=== PATIENT | female | born 1985 | race Caucasian/White ===

== ENCOUNTER 2016-10-19 13:18 | Emergency (ER) | payer MEDICAID, OTHER ==
[~2016-10-19] VITALS: Ht 157.5 cm; Wt 79.0 kg
[~2016-10-19 13:18] MED LIST: IBUP800T23 PO; LEVO50TA4 PO; UNIS50CA PO
[2016-10-19 13:20] VITALS: BP 158/81; PULSE 132; RESP 15; TEMP 98.1; O2SAT 95
[2016-10-19] MEDS ORDERED: SODIUM CHLOR 0.9% 1000 ML INJ 1,000 ML IV ONE (13:35)
[2016-10-19 13:47] VITALS: RESP 16; O2SAT 95
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
[2016-10-19 14:12] LABS: AUTOMATED NEUTROPHIL # 7.7 TH/MM3 (1.8-7.7); BASOPHIL # 0.1 TH/MM3 (0-0.2); BASOPHIL % 1.2 % (0.0-2.0); EOSINOPHIL # 0.1 TH/MM3 (0-0.4); EOSINOPHIL % 0.8 % (0.0-4.0); HEMATOCRIT 37.1 % (35.0-46.0); HEMO FLAGS DIFF FINAL; LYMPH % 16.8 % (9.0-44.0); LYMPHOCYTE # 1.7 TH/MM3 (1.0-4.8); MEAN CELL VOLUME 85.9 FL (80.0-100.0); MEAN CORPUSCULAR HEMOGLOBIN 28.9 PG (27.0-34.0); MEAN CORPUSCULAR HGB CONC 33.6 % (32.0-36.0); MONO % 5.2 % (0.0-8.0); PLATELET COUNT 396 TH/MM3 (150-450); RED BLOOD COUNT 4.32 MIL/MM3 (4.00-5.30); RED CELL DISTRIBUTION WIDTH 13.9 % (11.6-17.2); WHITE BLOOD COUNT 10.1 TH/MM3 (4.0-11.0)
[2016-10-19 14:21] LABS: APTT (PATIENT) 24.3 SEC (24.3-30.1)
[2016-10-19 14:32] LABS: ANION GAP 10 MEQ/L (5-15)
[2016-10-19 14:35] LABS: ALKALINE PHOSPHATASE 77 U/L (45-117); ALT (GPT) 30 U/L (10-53); AST (GOT) 17 U/L (15-37); BICARBONATE 27.1 MEQ/L (21.0-32.0); BLOOD UREA NITROGEN 11 MG/DL (7-18); CHLORIDE 99 MEQ/L (98-107); GLOMERULAR FILTRATION RATE 64 ML/MIN (>89); POTASSIUM 3.4 MEQ/L (3.5-5.1); SODIUM (NA) 136 MEQ/L (136-145); TOTAL BILIRUBIN ADULT 0.3 MG/DL (0.2-1.0)
[2016-10-19 14:42] LABS: ACETAMINOPHEN LESS THAN 2.0 MCG/ML (10.0-30.0)
[2016-10-19 16:37] LABS: BACTERIA, URINE RARE /hpf; BLOOD, URINE NEG (NEG); COMMENT (UR) CULT NOT INDICATED; CULTURE IF INDICATED CULT NOT INDICATED; GLUCOSE,URINE NEG (NEG); KETONE, URINE 40 mg/dL (NEG); NITRITE,URINE NEG (NEG); SQUAMOUS EPITHELIAL CELL URINE 6 /hpf (0-5); TRANSITIONAL EPI CELLS, URINE <1 /hpf; URINE COLOR LIGHT-YELLOW (YELLW/STRAW)
[2016-10-19 16:43] LABS: AMPHETAMINE, URINE NEG (NEG); BARBITURATES, URINE NEG (NEG); COCAINE, URINE NEG (NEG)
[2016-10-19 18:52] VITALS: BP 128/80; PULSE 103; RESP 22; TEMP 98.7; O2SAT 99
[2016-10-19 22:14] VITALS: BP 148/82; PULSE 75; RESP 18; O2SAT 97
[2016-10-20 02:00] VITALS: BP 116/62; PULSE 88; RESP 17; O2SAT 99
[2016-10-20 06:35] VITALS: BP 123/56; PULSE 85; RESP 16; O2SAT 98
--- NOTE | 2016-10-20 10:26 | PD ---
History of Present Illness Chief Complaint: OD/ Ingestion Time Seen by Provider: 09:50 Travel History International Travel<30 Days: No Contact w/Intl Traveler<30days: No Known affected area: No Legal Status Legal Status: Voluntary History of Present Illness: History of Present Illness The patient is a 31-year-old female with history of anxiety and depression who presents to the emergency department voluntarily after an intentional overdose. The patient states she took 17 [id number] sleeping pills last night in an effort to " go to sleep". She states that immediately after she took the pills she made herself vomit and she regretted taking the pills. " It was a moment of weakness". The incident happened in context of an argument she was having with her boyfriend as well as over sadness over the of her 3 years ago and some pictures of him that she was looking at. She also reports that she had 2 alcoholic drinks at the time. EMR review shows no previous contact with [facility] [place]. Current toxicology is negative including no ETOH. Patient was monitored overnight in [place] [facility]. She presented no behavioral concerns and no suicidality. She is alert and oriented female who appears stated age. She is calm, engaging and cooperative. speech is clear, logical and goal directed. Denies any hallucinations, delusions or paranoia. No karen. She denies current suicidal ideation, intent or plan. She reports that she was not suicidal but that taking the pills was an impulsive reaction at the time. Mood is depressed. reports fair sleep with recent nocmares, fair appetite and good level of energy. She is future oriented and is interesting i resuming psychiatric care as well as counseling services to increase her coping. PFSH Past Medical History Anxiety: Yes Depression: Yes Cardiovascular Problems: Yes (HEART MURMUR) Chemotherapy: Yes Fibromyalgia: Yes Immune Disorder: Yes (LUPUS) Musculoskeletal: Yes (fibromylgia) Reproductive: Yes (PCOS) Thyroid Disease: Yes (HYPOTHYROID) ?: Not LMP: 10/05/16 Ovarian Cysts: Yes Past Surgical History Other Surgery: Yes (HERNIA REPAIR) Psychiatric History Psychiatric History Hx Psychiatric Treatment: HX: DEPRESSION, ANXIETY. History of Inpatient Treatment: No Guns or firearms in home: No Social History female. at age 18 years. She is currently living with her boyfriend. No children. She is on social security disability. Hx Alcohol Use: Yes ( drinks 1 -2 glassess of wine.) Hx Tobacco Use: No Hx Substance Use: No Hx of Substance Use Treatment: No Family Psychiatric History None reported Allergies-Medications (Allergen,Severity, Reaction): Coded Allergies: No Known Allergies (Unverified , 09/18/16) Reported Meds & Prescriptions Reported Meds & Active Scripts Active Levothyroxine (Levothyroxine Sodium) 50 Mcg Tab 50 Mcg PO DAILY Reported Unisom Sleepgels (Diphenhydramine (Sleep)) 50 Mg Cap 50 Mg PO HS PRN Ibuprofen 800 Mg Tab 800 Mg PO TID PRN Review of Systems Constitutional: DENIES: Diaphoretic episodes, Fatigue, Fever, Weight gain, Weight loss, Chills, Dizziness, Change in appetite, Night Sweats Endocrine: DENIES: Abnorml menstrual pattern, Heat/cold intolerance, Polydipsia , Polyuria, Polyphagia Ears, nose, mouth, throat: DENIES: Tinnitus, Hearing loss, Vertigo, Nasal discharge, Oral lesions, Throat pain, Hoarseness, Ear Pain, Running Nose, Epistaxis, Sinus Pain, Toothache, Odynophagia Respiratory: DENIES: Apneas, Cough, Snoring, Wheezing, Hemoptysis, Sputum production, Shortness of breath Cardiovascular: DENIES: Chest pain, Palpitations, Syncope, Dyspnea on Exertion , PND, Lower Extremity Edema, Orthopnea, Claudication Gastrointestinal: DENIES: Abdominal pain, Black stools, Bloody stools, Constipation, Diarrhea, Nausea, Vomiting, Difficulty Swallowing, Anorexia Genitourinary: DENIES: Abnormal vaginal bleeding, Dysmenorrhea, Dyspareunia, Sexual dysfunction, Urinary frequency, Urinary incontinence, Urgency, Hematuria , Dysuria, Nocturia, Vaginal discharge Musculoskeletal: COMPLAINS OF: Muscle aches Integumentary: DENIES: Abnormal pigmentation, Pruritus, Rash, Nail changes, Breast masses, Breast skin changes, Nipple discharge Hematologic/lymphatic: DENIES: Bruising, Lymphadenopathy Immunologic/allergic: DENIES: Eczema, Urticaria Neurologic: DENIES: Abnormal gait, Headache, Localized weakness, Paresthesias, Seizures, Speech Problems, Tremor, Poor Balance Psychiatric: COMPLAINS OF: Anxiety, Depression Exam Alert: Yes Fertile: Person (ox4) Mood: Anxious, Depressed Affect: Other (congruent) Speech: Clear, Logical Eye Contact: Normal Memory Intact: Comment (no impairment) Hallucinations: Other (Negative) Delusions: No Suicidal: Ideation (deneis any) Homicidal: Ideation (denies any) Insight/Judgement Fair. Not impaired. MDM Medical Decision Making Medical Record Reviewed: Yes Assessment/Plan 31 year old female under a voluntary who impulsively took a handful of sleeping pills. This in context of seeing some pictures of her who 3 years ago as well as having an argument with her current boyfriend. She immediately vomited the pills and came to the hospital for help. Psychoeducation and support is provided. At this time she does not meet criteria for inpatient psychiatric care or for BA. She may benefit from initiating psychiatric care as well as counseling services on an outpatient basis. She is also provided information re grief share. Discharge to home. Orders Complete Blood Count With Diff (10/19/16 13:35) Comprehensive Metabolic Panel (10/19/16 13:35) Prothrombin Time / Inr (Pt) (10/19/16 13:35) Act Partial Throm Time (Ptt) (10/19/16 13:35) Urinalysis - C+S If Indicated (10/19/16 13:35) Iv Access Insert/Monitor (10/19/16 13:35) Ecg Monitoring (10/19/16 13:35) Oximetry (10/19/16 13:35) Sodium Chlor 0.9% 1000 Ml Inj (Ns 1000 M (10/19/16 13:35) Call Poison Control (10/19/16 13:35) Drug Screen, Random Urine (10/19/16 13:35) Alcohol (Ethanol) (10/19/16 13:35) Salicylates (Aspirin) (10/19/16 13:35) Tylenol (Acetaminophen) (10/19/16 13:35) Psych Screen (10/19/16 13:36) Electrocardiogram (10/19/16 ) Diet Regular Basic (10/19/16 Dinner) Diet Regular Basic (10/20/16 Breakfast) Results Vital Signs Date Time Temp Pulse Resp B/P Pulse Ox O2 Delivery O2 Flow Rate FiO2 10/20/16 06:35 85 16 123/56 98 Room Air 10/20/16 02:00 88 17 116/62 99 Room Air 10/19/16 22:14 75 18 148/82 97 Room Air 10/19/16 18:52 98.7 103 22 128/80 99 Room Air 10/19/16 13:47 16 95 Room Air 10/19/16 13:38 130 16 97 10/19/16 13:20 98.1 132 15 158/81 95 Laboratory Tests Test 10/19/16 10/19/16 14:00 16:20 White Blood Count 10.1 Red Blood Count 4.32 Hemoglobin 12.5 Hematocrit 37.1 Mean Corpuscular Volume 85.9 Mean Corpuscular Hemoglobin 28.9 Mean Corpuscular Hemoglobin 33.6 Concent Red Cell Distribution Width 13.9 Platelet Count 396 Mean Platelet Volume 7.8 Neutrophils (%) (Auto) 76.0 Lymphocytes (%) (Auto) 16.8 Monocytes (%) (Auto) 5.2 Eosinophils (%) (Auto) 0.8 Basophils (%) (Auto) 1.2 Neutrophils # (Auto) 7.7 Lymphocytes # (Auto) 1.7 Monocytes # (Auto) 0.5 Eosinophils # (Auto) 0.1 Basophils # (Auto) 0.1 CBC Comment DIFF FINAL Differential Comment Prothrombin Time 11.0 Prothromb Time International 1.0 Ratio Activated Partial 24.3 Thromboplast Time Sodium Level 136 Potassium Level 3.4 Chloride Level 99 Carbon Dioxide Level 27.1 Anion Gap 10 Blood Urea Nitrogen 11 Creatinine 1.01 Estimat Glomerular Filtration 64 Rate Random Glucose 100 Calcium Level 9.1 Total Bilirubin 0.3 Aspartate Amino Transf 17 (AST/SGOT) Alanine Aminotransferase 30 (ALT/SGPT) Alkaline Phosphatase 77 Total Protein 8.1 Albumin 4.4 Salicylates Level LESS THAN 1.7 Acetaminophen Level LESS THAN 2.0 Ethyl Alcohol Level LESS THAN 3 Urine Color LIGHT-YELLOW Urine Turbidity HAZY Urine pH 6.0 Urine Specific [place] 1.009 Urine Protein NEG Urine Glucose (UA) NEG Urine Ketones 40 Urine Occult Blood NEG Urine Nitrite NEG Urine Bilirubin NEG Urine Urobilinogen LESS THAN 2.0 Urine Leukocyte Esterase NEG Urine RBC LESS THAN 1 Urine WBC 4 Urine Squamous Epithelial 6 Cells Urine Transitional Epithelial <1 Cells Urine Bacteria RARE Microscopic Urinalysis Comment CULT NOT INDICATED Urine Opiates Screen NEG Urine Barbiturates Screen NEG Urine Amphetamines Screen NEG Urine Benzodiazepines Screen NEG Urine Cocaine Screen NEG Urine Cannabinoids Screen NEG Diagnosis Primary Impression: Intentional drug overdose Additional Impression: Adjustment disorder Psychiatrically Cleared: Yes Med/ Other Pt Specific Info: No Meds Exist/No RX given Disposition: 01 DISCHARGE HOME Condition: Stable Problem Qualifiers Primary Impression: Intentional drug overdose Qualified Code: T50.902A - Intentional drug overdose, initial encounter Additional Impression: Adjustment disorder Qualified Code: F43.23 - Adjustment disorder with mixed anxiety and depressed mood Ara Johnson Oct 20, 2016 10:26
--- NOTE | 2016-10-26 12:58 | EKG ---
Date Performed: 10/19/2016 Time Performed: 14:35:05 PTAGE: 31 years EKG: SINUS TACHYCARDIA INCOMPLETE RIGHT BUNDLE BRANCH BLOCK NONSPECIFIC T-WAVE ABNORMALITY ABNOR MAL RHYTHM ECG NO PREVIOUS TRACING DOCTOR: Joey Kc Interpretating Date/Time 10/26/2016 12:57:40
[2016-11-03] MEDS ORDERED: EXTR500C PO (11:12)
[2016-11-04] MEDS ORDERED: LEVO50TA4 PO (09:24)
[2016-11-12] MEDS ORDERED: LAMO25TA PO (15:19)
[2016-11-12] MEDS ORDERED: PRAZ1CAP PO (15:19)
[2016-12-02] MEDS ORDERED: LEVO50TA4 PO (13:46)
[2016-12-18] MEDS ORDERED: PRAZ1CAP PO (14:19)
[2016-12-18] MEDS ORDERED: LAMO25TA PO (14:19)
[2016-12-18] MEDS ORDERED: FLUO0.05 TOPICAL (14:30)
[2016-12-18] MEDS ORDERED: HYDR1CRE TOPICAL (14:30)
[2016-12-18] MEDS ORDERED: PRED20 PO (14:31)
[2016-12-18] MEDS ORDERED: LIDO1PAD52 TOPICAL (14:35)
[2016-12-18] MEDS ORDERED: ZOFR8TAB PO (14:36)
[2016-12-31] MEDS ORDERED: LEVO50TA4 PO (16:41)
[2017-01-27] MEDS ORDERED: LEVO50TA4 PO (07:44)
[2017-02-19] MEDS ORDERED: LEVO50TA4 PO (12:29)
== END 2016-10-20 10:55 | disposition home or self-care (01) ==
LOC: NEPE 13:18 → NEPJ 10-20 10:55
DX: F41.9 Anxiety disorder, unspecified (principal); T50.902A Poisoning by unspecified drugs, medicaments and biological substances, intentional self-harm, initial encounter; M32.9 Systemic lupus erythematosus, unspecified; E03.9 Hypothyroidism, unspecified; R00.0 Tachycardia, unspecified; I45.10 Unspecified right bundle-branch block
CPT/HCPCS: 80053; 80307; 80320; 81001; 85025; 85610; 85730; 93005; 99284; J7030; 80329; G0480

== ENCOUNTER 2016-12-06 13:16 | Emergency (ER) | payer MEDICAID ==
[~2016-12-06] VITALS: Ht 157.5 cm; Wt 68.0 kg
[~2016-12-06 13:16] MED LIST changes: +EXTR500C PO; +LAMO25TA PO; +PRAZ1CAP PO
[2016-12-06 13:18] VITALS: BP 154/105; PULSE 112; RESP 17; TEMP 98.3; O2SAT 99
[2016-12-06 13:39] VITALS: BP 140/87; PULSE 119; RESP 16; O2SAT 97
[2016-12-06 14:18] LABS: AUTOMATED NEUTROPHIL # 4.8 TH/MM3 (1.8-7.7); BASOPHIL # 0.1 TH/MM3 (0-0.2); BASOPHIL % 1.2 % (0.0-2.0); EOSINOPHIL # 0.4 TH/MM3 (0-0.4); EOSINOPHIL % 4.6 % (0.0-4.0); HEMATOCRIT 37.2 % (35.0-46.0); HEMO FLAGS DIFF FINAL; MEAN CELL VOLUME 86.5 FL (80.0-100.0); MEAN CORPUSCULAR HEMOGLOBIN 29.3 PG (27.0-34.0); MEAN CORPUSCULAR HGB CONC 33.8 % (32.0-36.0); MONO % 6.8 % (0.0-8.0); NEUT % 61.4 % (16.0-70.0); PLATELET COUNT 323 TH/MM3 (150-450); RED CELL DISTRIBUTION WIDTH 13.4 % (11.6-17.2); WHITE BLOOD COUNT 7.7 TH/MM3 (4.0-11.0)
[2016-12-06 14:22] LABS: BACTERIA, URINE RARE /hpf; BLOOD, URINE NEG (NEG); GLUCOSE,URINE NEG (NEG); KETONE, URINE NEG (NEG); NITRITE,URINE NEG (NEG); SQUAMOUS EPITHELIAL CELL URINE 6 /hpf (0-5)
[2016-12-06 14:23] LABS: COMMENT (UR) CULT NOT INDICATED; CULTURE IF INDICATED CULT NOT INDICATED; URINE COLOR STRAW (YELLW/STRAW)
[2016-12-06 14:33] LABS: ANION GAP 6 MEQ/L (5-15); BICARBONATE 29.3 MEQ/L (21.0-32.0); BLOOD UREA NITROGEN 11 MG/DL (7-18); CHLORIDE 104 MEQ/L (98-107); GLOMERULAR FILTRATION RATE 70 ML/MIN (>89); POTASSIUM 3.7 MEQ/L (3.5-5.1); SODIUM (NA) 139 MEQ/L (136-145)
[2016-12-06 14:38] LABS: BETA HCG QUANT LESS THAN 1 MIU/ML (0-5)
--- NOTE | 2016-12-06 15:00 | PD ---
HPI Chief Complaint: Related Problem Time Seen by Provider: 13:35 Travel History International Travel<30 days: No Contact w/Intl Traveler<30days: No Traveled to known affect area: No History of Present Illness HPI The patient is a 31-year-old female 0 last menstruation 7 weeks prior with 2 positive home test arrives complaining of 2 days of vaginal bleeding with clots. Severity has gradually decreased with only minimal bleeding today. She reports no ultrasound has been performed. She has had no algorithm developer appointment as of yet. She reports nausea however denies vomiting and fever. PFSH Past Medical History Anxiety: Yes Depression: Yes Cardiovascular Problems: Yes (HEART MURMUR) Chemotherapy: Yes (FOR LUPUS (METHOTREXATE)) Fibromyalgia: Yes Immune Disorder: Yes (LUPUS) Musculoskeletal: Yes (fibromylgia) Reproductive: Yes (PCOS) Thyroid Disease: Yes (HYPOTHYROID) Influenza Vaccination: No ?: LMP: 10/05/16 : 1 Ovarian Cysts: Yes Past Surgical History Other Surgery: Yes (HERNIA REPAIR) Social History Alcohol Use: Yes ( drinks 1 -2 glassess of wine.) Tobacco Use: No Substance Use: No Allergies-Medications (Allergen,Severity, Reaction): Coded Allergies: No Known Allergies (Unverified , 11/12/16) Reported Meds & Prescriptions Reported Meds & Active Scripts Active Levothyroxine (Levothyroxine Sodium) 50 Mcg Tab 50 Mcg PO DAILY Reported Acetaminophen Extra Strength (Acetaminophen) 500 Mg Cap 1,000 Mg PO Q6H PRN Unisom Sleepgels (Diphenhydramine (Sleep)) 50 Mg Cap 50 Mg PO HS PRN Ibuprofen 800 Mg Tab 800 Mg PO TID PRN Review of Systems Except as stated in HPI: all other systems reviewed are Neg General / Constitutional: No: Fever Physical Exam Narrative GENERAL: 31-year-old female pleasant well-nourished well-developed SKIN: Focused skin assessment warm/dry. HEAD: Atraumatic. Normocephalic. EYES: Pupils equal and round. No scleral icterus. No injection or drainage. ENT: No nasal bleeding or discharge. Mucous membranes pink and moist. NECK: Trachea midline. No JVD. CARDIOVASCULAR: Regular rate and rhythm. No murmur appreciated. RESPIRATORY: No accessory muscle use. Clear to auscultation. Breath sounds equal bilaterally. GASTROINTESTINAL: Soft. Minimal suprapubic tenderness. No flank tenderness. GENITOURINARY: Deferred per discretion of provider MUSCULOSKELETAL: No obvious deformities. No clubbing. No cyanosis. No edema. NEUROLOGICAL: Awake and alert. No obvious cranial nerve deficits. Motor grossly within normal limits. Normal speech. PSYCHIATRIC: Appropriate mood and affect; insight and judgment normal. Data Data Last Documented VS Vital Signs Date Time Temp Pulse Resp B/P Pulse Ox O2 Delivery O2 Flow Rate FiO2 12/06/16 13:39 119 16 140/87 97 Room Air 12/06/16 13:18 98.3 Vital signs reviewed Orders Beta Hcg (Quant/Titer) (12/06/16 13:53) Complete Blood Count With Diff (12/06/16 13:53) Basic Metabolic Panel (Bmp) (12/06/16 13:53) Type And Screen (12/06/16 13:53) Urinalysis - C+S If Indicated (12/06/16 13:53) Ed Urine Pregnancytest Poc (12/06/16 13:53) Labs Laboratory Tests Test 12/06/16 14:10 White Blood Count 7.7 TH/MM3 Red Blood Count 4.30 MIL/MM3 Hemoglobin 12.6 GM/DL Hematocrit 37.2 % Mean Corpuscular Volume 86.5 FL Mean Corpuscular Hemoglobin 29.3 PG Mean Corpuscular Hemoglobin 33.8 % Concent Red Cell Distribution Width 13.4 % Platelet Count 323 TH/MM3 Mean Platelet Volume 8.0 FL Neutrophils (%) (Auto) 61.4 % Lymphocytes (%) (Auto) 26.0 % Monocytes (%) (Auto) 6.8 % Eosinophils (%) (Auto) 4.6 % Basophils (%) (Auto) 1.2 % Neutrophils # (Auto) 4.8 TH/MM3 Lymphocytes # (Auto) 2.0 TH/MM3 Monocytes # (Auto) 0.5 TH/MM3 Eosinophils # (Auto) 0.4 TH/MM3 Basophils # (Auto) 0.1 TH/MM3 CBC Comment DIFF FINAL Differential Comment Urine Color STRAW Urine Turbidity HAZY Urine pH 7.0 Urine Specific [place] 1.003 Urine Protein NEG mg/dL Urine Glucose (UA) NEG mg/dL Urine Ketones NEG mg/dL Urine Occult Blood NEG Urine Nitrite NEG Urine Bilirubin NEG Urine Urobilinogen LESS THAN 2.0 MG/DL Urine Leukocyte Esterase SMALL Urine RBC LESS THAN 1 /hpf Urine WBC 3 /hpf Urine Squamous Epithelial 6 /hpf Cells Urine Bacteria RARE /hpf Microscopic Urinalysis Comment CULT NOT INDICATED Sodium Level 139 MEQ/L Potassium Level 3.7 MEQ/L Chloride Level 104 MEQ/L Carbon Dioxide Level 29.3 MEQ/L Anion Gap 6 MEQ/L Blood Urea Nitrogen 11 MG/DL Creatinine 0.93 MG/DL Estimat Glomerular Filtration 70 ML/MIN Rate Random Glucose 110 MG/DL Calcium Level 9.8 MG/DL Human Chorionic Gonadotropin, LESS THAN 1 Quant MIU/ML Blood Type B POSITIVE [facility] Medical Decision Making Medical Screen Exam Complete: Yes Emergency Medical Condition: Yes Medical Record Reviewed: Yes Differential Diagnosis IUP, UTI, ectopic , ov torsion, appendicitis, TOA, cervicitis, BV, Trichomoniasis, ov cyst, hernia, mittelschmerz, pain from menstruation Narrative Course The patient has a negative urine test and a beta hCG of less than 1. She is therefore not . Ultrasound canceled. CBC & BMP Diagram 12/06/16 14:10 Pt reassured. Follow up with Filter [facility]er referral. Diagnosis Primary Impression: Vaginal bleeding Referrals: Pop Mccallum MD 2 days Additional Instructions: You have a choice when it comes to health care, and we are glad that you chose [facility]. Hopefully, we have met your expectations on today's visit. You are welcome to return to [facility] at any time, as we are committed to meeting the health care needs of our community. Med/Other Pt SpecificInfo: No Change to Meds Disposition: 01 DISCHARGE HOME Condition: Stable Nico Boudreaux MD Dec 06, 2016 14:59
[2016-12-18] MEDS ORDERED: PRAZ1CAP PO (14:19)
[2016-12-18] MEDS ORDERED: LAMO25TA PO (14:19)
[2016-12-18] MEDS ORDERED: FLUO0.05 TOPICAL (14:30)
[2016-12-18] MEDS ORDERED: HYDR1CRE TOPICAL (14:30)
[2016-12-18] MEDS ORDERED: PRED20 PO (14:31)
[2016-12-18] MEDS ORDERED: LIDO1PAD52 TOPICAL (14:35)
[2016-12-18] MEDS ORDERED: ZOFR8TAB PO (14:36)
[2016-12-31] MEDS ORDERED: LEVO50TA4 PO (16:41)
[2017-01-27] MEDS ORDERED: LEVO50TA4 PO (07:44)
[2017-02-19] MEDS ORDERED: LEVO50TA4 PO (12:29)
== END 2016-12-06 15:14 | disposition home or self-care (01) ==
LOC: NEPC 13:16
DX: N93.9 Abnormal uterine and vaginal bleeding, unspecified (principal); R11.0 Nausea; M79.7 Fibromyalgia; E28.2 Polycystic ovarian syndrome; E03.9 Hypothyroidism, unspecified
CPT/HCPCS: 80048; 81001; 84702; 84703; 85025; 86850; 86900; 86901; 99284

== ENCOUNTER 2016-12-22 01:18 | Emergency (ER) | payer MEDICAID ==
[~2016-12-22] VITALS: Ht 157.5 cm; Wt 75.0 kg
[~2016-12-22 01:18] MED LIST changes: +FLUO0.05 TOPICAL; +HYDR1CRE TOPICAL; +LIDO1PAD52 TOPICAL; +PRED20 PO; +ZOFR8TAB PO
[2016-12-22 01:32] VITALS: BP 144/84; PULSE 119; RESP 18; TEMP 98.5; O2SAT 99
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
[2016-12-23] MEDS ORDERED: LAMO25CH CHEW (15:46)
[2016-12-31] MEDS ORDERED: LEVO50TA4 PO (16:41)
[2017-01-27] MEDS ORDERED: LEVO50TA4 PO (07:44)
[2017-02-19] MEDS ORDERED: LEVO50TA4 PO (12:29)
== END 2016-12-22 03:02 | disposition left against medical advice (07) ==
LOC: NEPC 01:18
DX: T76.21XA Adult sexual abuse, suspected, initial encounter (principal)
CPT/HCPCS: 99281

== ENCOUNTER 2016-12-23 14:05 | Emergency (ER) | payer MEDICAID ==
[~2016-12-23] VITALS: Ht 157.5 cm; Wt 70.0 kg
[2016-12-23 14:06] VITALS: BP 168/101; PULSE 118; RESP 20; TEMP 98.4; O2SAT 99
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
[2016-12-23] MEDS ORDERED: LAMO25CH CHEW (15:46)
[2016-12-23 15:55] LABS: AUTOMATED NEUTROPHIL # 5.4 TH/MM3 (1.8-7.7); BASOPHIL # 0.1 TH/MM3 (0-0.2); BASOPHIL % 0.9 % (0.0-2.0); EOSINOPHIL # 0.3 TH/MM3 (0-0.4); EOSINOPHIL % 3.2 % (0.0-4.0); HEMATOCRIT 38.9 % (35.0-46.0); HEMO FLAGS DIFF FINAL; LYMPH % 27.5 % (9.0-44.0); LYMPHOCYTE # 2.4 TH/MM3 (1.0-4.8); MEAN CELL VOLUME 85.1 FL (80.0-100.0); MEAN CORPUSCULAR HEMOGLOBIN 28.9 PG (27.0-34.0); MONO % 5.7 % (0.0-8.0); NEUT % 62.7 % (16.0-70.0); PLATELET COUNT 398 TH/MM3 (150-450); RED BLOOD COUNT 4.57 MIL/MM3 (4.00-5.30); RED CELL DISTRIBUTION WIDTH 13.3 % (11.6-17.2); WHITE BLOOD COUNT 8.6 TH/MM3 (4.0-11.0)
[2016-12-23 16:24] LABS: ALT (GPT) 38 U/L (10-53); ANION GAP 9 MEQ/L (5-15); AST (GOT) 17 U/L (15-37); BICARBONATE 25.4 MEQ/L (21.0-32.0); CHLORIDE 104 MEQ/L (98-107); GLOMERULAR FILTRATION RATE 66 ML/MIN (>89); POTASSIUM 3.7 MEQ/L (3.5-5.1); SODIUM (NA) 138 MEQ/L (136-145)
[2016-12-23 16:33] LABS: ALKALINE PHOSPHATASE 75 U/L (45-117); BLOOD UREA NITROGEN 10 MG/DL (7-18); TOTAL BILIRUBIN ADULT 0.4 MG/DL (0.2-1.0)
[2016-12-23 18:42] VITALS: BP 122/80; PULSE 100; RESP 18; O2SAT 98
[2016-12-23 19:17] LABS: AMPHETAMINE, URINE NEG (NEG); BARBITURATES, URINE NEG (NEG); COCAINE, URINE NEG (NEG)
[2016-12-23] MEDS ORDERED: diphenhydrAMINE HCL 50 MG CAP PO ONE (21:45)
[2016-12-23 22:00] VITALS: BP 140/90; PULSE 94; RESP 16; O2SAT 99
[2016-12-24] MEDS ORDERED: LORazepam 2 MG TAB PO ONE (01:15)
[2016-12-24 02:03] VITALS: BP 129/88; PULSE 106; RESP 18; O2SAT 98
[2016-12-24 06:00] VITALS: BP 124/67; PULSE 83; RESP 17; O2SAT 97
[2016-12-24 07:37] VITALS: BP 124/67; PULSE 83; RESP 18; TEMP 98.1; O2SAT 98
[2016-12-24 07:38] VITALS: BP 124/67; TEMP 98.1
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
[2016-12-31] MEDS ORDERED: LEVO50TA4 PO (16:41)
[2017-01-27] MEDS ORDERED: LEVO50TA4 PO (07:44)
[2017-02-19] MEDS ORDERED: LEVO50TA4 PO (12:29)
== END 2016-12-24 08:27 | disposition home or self-care (01) ==
LOC: NEPJ 14:05
DX: F43.21 Adjustment disorder with depressed mood (principal); T74.21XS Adult sexual abuse, confirmed, sequela; Z79.899 Other long term (current) drug therapy
CPT/HCPCS: 80053; 80307; 85025; 99284; Q0163

== ENCOUNTER 2017-05-14 14:05 | Observation (INO) | payer MEDICAID ==
[~2017-05-14] VITALS: Ht 157.5 cm; Wt 70.0 kg
[2017-05-14] VITALS (7 sets, daily range): BP systolic 131–167; BP diastolic 87–103; PULSE 92–120; RESP 18–20; TEMP 98.1–99.4; O2SAT 95–98
[~2017-05-14 14:05] MED LIST changes: +AMIT100T2 PO; +BACL10TA PO; +BUSP30TA PO; -EXTR500C PO; -FLUO0.05 TOPICAL; -HYDR1CRE TOPICAL; -IBUP800T23 PO; -LAMO25TA PO; +MAPA500T13 PO; +ONDA1TAB16 PO; -PRAZ1CAP PO; -PRED20 PO; +QUET1TAB8 PO; +SERT-129 PO; -UNIS50CA PO; -ZOFR8TAB PO
--- NOTE | 2017-05-14 14:12 | PD ---
Physical Exam Time Seen by Provider: 14:10 Narrative 32-year-old female sent by Khalida Wilkins, primary care provider, for chest pain for the last couple days that has been constant. Chest pain on and off for a couple months. Reports shortness of breath. Reports heart palpitations. Patient seen in triage. VS reviewed. Awaiting bed placement. Data Data Last Documented VS Vital Signs Date Time Temp Pulse Resp B/P (MAP) Pulse Ox O2 Delivery O2 Flow Rate FiO2 05/14/17 14:08 99.4 120 19 167/103 (124) 98 Room Air MDM Supervised Visit with HAI: Josephine Crowder May 14, 2017 14:12
[2017-05-14] MEDS ORDERED: SODIUM CHLORIDE 0.9% FLUSH 10 ML FLUSH IVF PRN (14:15)
[2017-05-14 15:07] LABS: AUTOMATED NEUTROPHIL # 4.5 TH/MM3 (1.8-7.7); BASOPHIL # 0.1 TH/MM3 (0-0.2); BASOPHIL % 1.1 % (0.0-2.0); EOSINOPHIL # 0.2 TH/MM3 (0-0.4); EOSINOPHIL % 2.7 % (0.0-4.0); HEMO FLAGS DIFF FINAL; LYMPH % 21.9 % (9.0-44.0); LYMPHOCYTE # 1.4 TH/MM3 (1.0-4.8); MEAN CELL VOLUME 88.2 FL (80.0-100.0); MEAN CORPUSCULAR HGB CONC 32.9 % (32.0-36.0); MONO % 6.6 % (0.0-8.0); NEUT % 67.7 % (16.0-70.0); PLATELET COUNT 406 TH/MM3 (150-450); RED BLOOD COUNT 4.65 MIL/MM3 (4.00-5.30); RED CELL DISTRIBUTION WIDTH 14.2 % (11.6-17.2); WHITE BLOOD COUNT 6.6 TH/MM3 (4.0-11.0)
[2017-05-14 15:14] LABS: APTT (PATIENT) 26.5 SEC (24.3-30.1); INTERNATIONAL NORMALIZED RATIO 1.1 RATIO
[2017-05-14 15:22] LABS: ANION GAP 8 MEQ/L (5-15); BICARBONATE 26.4 MEQ/L (21.0-32.0); BLOOD UREA NITROGEN 9 MG/DL (7-18); CHLORIDE 103 MEQ/L (98-107); GLOMERULAR FILTRATION RATE 58 ML/MIN (>89); MAGNESIUM 2.2 MG/DL (1.5-2.5); SODIUM (NA) 137 MEQ/L (136-145)
[2017-05-14 15:36] LABS: CREATINE KINASE 64 U/L (26-192)
--- NOTE | 2017-05-14 15:40 | RADRPT ---
EXAM DATE/TIME: 05/14/2017 15:19 [facility] COMPARISON: No previous studies available for comparison. INDICATIONS : Chest pain x 3 days. MEDICAL HISTORY : Lupus. SURGICAL HISTORY : None. ENCOUNTER: Initial ACUITY: 1 day PAIN SCORE: 6/10 LOCATION: Bilateral chest FINDINGS: A single view of the chest demonstrates the lungs to be symmetrically aerated without evidence of mas s, infiltrate or effusion. The cardiomediastinal contours are unremarkable. Osseous structures are intact. CONCLUSION: 1. No acute cardiopulmonary findings. Nico Strange MD on May 14, 2017 at 15:38 Board Certified Radiologist. This report was verified electronically.
--- NOTE | 2017-05-14 16:05 | PD ---
HPI Chief Complaint: Chest Pain Time Seen by Provider: 15:40 Travel History International Travel<30 days: No Contact w/Intl Traveler<30days: No Traveled to known affect area: No History of Present Illness HPI 32 YO F with PMH of lupus and fibromyalgia presents to the ED for evaluation of "a few months" history of constant, "heavy"," left sided CP. Gradual onset. Occasionally "throbs and shoots to the neck and left arm." No alleviating or exacerbating factors reported. Patient endorses accompanying palpitations and shortness of breath. She states the episodes last anywhere from "a few minutes to 15 minutes." She endorses subjective fevers and chills, has not measured a temperature at home. She endorses mild nausea and low appetite. She denies vomiting. She states she had a bowel movement this morning. The patient states that her last menstrual period was about 5 days ago. She denies dysuria , vaginal discharge. She denies risk of . She does not use oral contraception. She's never smoked cigarettes but she states that she did smoke medical marijuana up until 2 years ago. Endorses familial cardiac history. PFSH Past Medical History Anxiety: Yes Depression: Yes Cardiovascular Problems: Yes (HEART MURMUR) Chemotherapy: Yes (FOR LUPUS (METHOTREXATE)) Diminished Hearing: No Fibromyalgia: Yes Immune Disorder: Yes (LUPUS) Insomnia: Yes (last 2 days) Musculoskeletal: Yes Psychiatric: Yes (PTSD) Reproductive: Yes (PCOS) Thyroid Disease: Yes (HYPOTHYROID) Tetanus Vaccination: < 5 Years ?: Not LMP: 05/07/17 : 1 Miscarriage: 1 Ovarian Cysts: Yes Past Surgical History Abdominal Surgery: Yes (hernia repair) Other Surgery: Yes (HERNIA REPAIR) Social History Alcohol Use: Yes (occ) Tobacco Use: No Substance Use: No Allergies-Medications (Allergen,Severity, Reaction): Coded Allergies: No Known Allergies (Unverified , 03/10/17) Reported Meds & Prescriptions Reported Meds & Active Scripts Active Ondansetron (Ondansetron HCl) 4 Mg Tab 1 Tab PO Q8HR PRN Levothyroxine (Levothyroxine Sodium) 50 Mcg Tab 50 Mcg PO DAILY Reported Buspirone (Buspirone HCl) 30 Mg Tab 30 Mg PO TID Sertraline (Sertraline HCl) 100 Mg Tab 100 Mg PO DAILY Amitriptyline (Amitriptyline HCl) 100 Mg Tab 100 Mg PO HS Quetiapine (Quetiapine Fumarate) 100 Mg Tab 100 Mg PO HS Mapap Extra Strength (Acetaminophen) 500 Mg Tab 1,000 Mg PO Q4-6H PRN Review of Systems Except as stated in HPI: all other systems reviewed are Neg Physical Exam Narrative GENERAL: Well-nourished, well-developed white female in no acute distress. SKIN: Focused skin assessment warm/dry. HEAD: Normocephalic. EYES: No scleral icterus. No injection or drainage. NECK: Supple, trachea midline. No JVD or lymphadenopathy. CARDIOVASCULAR: Regular rate and rhythm without murmurs, gallops, or rubs. CHEST: Nontender throughout without deformity or crepitus. RESPIRATORY: Breath sounds equal bilaterally. No accessory muscle use. GASTROINTESTINAL: Abdomen soft, non-tender, nondistended. Active bowel sounds. MUSCULOSKELETAL: No cyanosis, or edema. NEUROLOGICAL: Awake and alert. Cranial nerves II through XII intact. Motor and sensory grossly within normal limits. Five out of 5 muscle strength in all muscle groups. 5/5 strength of dorsiflexion, plantarflexion, knee and hip flexion bilaterally. The patient has a tremor which she states is at baseline. BACK: Nontender without obvious deformity. No CVA tenderness. Data Data Last Documented VS Vital Signs Date Time Temp Pulse Resp B/P (MAP) Pulse Ox O2 Delivery O2 Flow Rate FiO2 05/14/17 15:11 102 20 134/87 (103) 96 Room Air 05/14/17 14:08 99.4 Orders Orders Electrocardiogram (05/14/17 14:13) Basic Metabolic Panel (Bmp) (05/14/17 14:13) Ckmb (Isoenzyme) Profile (05/14/17 14:13) Complete Blood Count With Diff (05/14/17 14:13) Magnesium (Mg) (05/14/17 14:13) Prothrombin Time / Inr (Pt) (05/14/17 14:13) Act Partial Throm Time (Ptt) (05/14/17 14:13) Troponin I (05/14/17 14:13) Chest, Single Ap (05/14/17 14:13) Ecg Monitoring (05/14/17 14:13) Iv Access Insert/Monitor (05/14/17 14:13) Oximetry (05/14/17 14:13) Oxygen Administration (05/14/17 14:13) Sodium Chloride 0.9% Flush (Ns Flush) (05/14/17 14:15) Ct Pulmonary Angiogram (05/14/17 ) Ed Urine Pregnancytest Poc (05/14/17 16:47) Morphine Inj (Morphine Inj) (05/14/17 17:00) Iohexol 350 Inj (Omnipaque 350 Inj) (05/14/17 17:37) Place In Observation (05/14/17 18:01) Activity Bed Rest With Brp (05/14/17 18:01) Vital Signs (Adult) Q4H (05/14/17 18:) Cardiac Rhythm .As Directed (05/14/17 18:) Notify Dr: Other .PRN (05/14/17 18:) Notify Parameters (05/14/17 18:01) Resp Oxygen Nasal Cannula (05/14/17 ) Diet Heart Healthy (05/14/17 Dinner) Ckmb (Isoenzyme) Profile (05/14/17 18:01) Ckmb (Isoenzyme) Profile (05/14/17 21:01) Troponin I (05/14/17 18:01) Troponin I (05/14/17 21:01) Electrocardiogram (05/14/17 18:01) Electrocardiogram (05/14/17 21:01) ^ Obtain (05/14/17 18:01) Sodium Chloride 0.9% Flush (Ns Flush) (05/14/17 18:15) Sodium Chloride 0.9% Flush (Ns Flush) (05/14/17 21:00) [facility] Hospitalist / Telemetry FABBY.Q8H (05/14/17 18:01) Admit Order (Ed Use Only) (05/14/17 18:01) Labs Laboratory Tests Test 05/14/17 14:50 White Blood Count 6.6 TH/MM3 Red Blood Count 4.65 MIL/MM3 Hemoglobin 13.5 GM/DL Hematocrit 41.0 % Mean Corpuscular Volume 88.2 FL Mean Corpuscular Hemoglobin 29.0 PG Mean Corpuscular Hemoglobin Concent 32.9 % Red Cell Distribution Width 14.2 % Platelet Count 406 TH/MM3 Mean Platelet Volume 7.3 FL Neutrophils (%) (Auto) 67.7 % Lymphocytes (%) (Auto) 21.9 % Monocytes (%) (Auto) 6.6 % Eosinophils (%) (Auto) 2.7 % Basophils (%) (Auto) 1.1 % Neutrophils # (Auto) 4.5 TH/MM3 Lymphocytes # (Auto) 1.4 TH/MM3 Monocytes # (Auto) 0.4 TH/MM3 Eosinophils # (Auto) 0.2 TH/MM3 Basophils # (Auto) 0.1 TH/MM3 CBC Comment DIFF FINAL Differential Comment Prothrombin Time 12.0 SEC Prothromb Time International Ratio 1.1 RATIO Activated Partial Thromboplast Time 26.5 SEC Blood Urea Nitrogen 9 MG/DL Creatinine 1.09 MG/DL Random Glucose 99 MG/DL Calcium Level 9.7 MG/DL Magnesium Level 2.2 MG/DL Sodium Level 137 MEQ/L Potassium Level 4.0 MEQ/L Chloride Level 103 MEQ/L Carbon Dioxide Level 26.4 MEQ/L Anion Gap 8 MEQ/L Estimat Glomerular Filtration Rate 58 ML/MIN Total Creatine Kinase 64 U/L Troponin I LESS THAN 0.02 NG/ML MDM Medical Decision Making Medical Screen Exam Complete: Yes Emergency Medical Condition: Yes Differential Diagnosis chest pain versus PE versus PNA versus other Narrative Course 32 YO F with PMH of lupus and fibromyalgia presents to the ED for evaluation of "a few months" history of constant, "heavy"," left sided CP. Gradual onset. Occasionally "throbs and shoots to the neck and left arm." No alleviating or exacerbating factors reported. Patient endorses accompanying palpitations and shortness of breath. Episodes last anywhere from "a few minutes to 15 minutes. " LMP about 5 days ago. She denies risk of . She does not use oral contraception. She's never smoked cigarettes but she states that she did smoke medical marijuana up until 2 years ago. Endorses familial cardiac history. Vitals reviewed. On exam the patient has an essential tremor but is otherwise unremarkable. EKG: Rate 91, sinus rhythm. IL interval 183, QRS 177, QTC 433 ms. Normal axis. No acute ST changes. Reviewed by Dr. Pichardo. Chest x-ray: No acute findings per radiology read. Cardiac enzymes negative 1. CBC, CMP, coags without concerning abnormalities. CTA: No evidence of acute cardiopulmonary process or PE. Radiology read. I discussed the patient with Dr. Pichardo who recommends admission to the chest pain center. I discussed this plan with the patient who is agreeable. Please see chest pain center notes for disposition. Melody Restrepo May 14, 2017 16:05
[2017-05-14] MEDS ORDERED: MORPHINE SULFATE 4 MG/ML INJ IV PUSH ONE ×2 (17:00→18:45)
[2017-05-14] MEDS ORDERED: IOHEXOL 350 MG/ML 10 ML VIAL (for RAD DIAG) IVCONTRAST ONE (17:37)
--- NOTE | 2017-05-14 17:50 | RADRPT ---
EXAM DATE/TIME: 05/14/2017 17:27 [facility] COMPARISON: CHEST SINGLE AP, May 14, 2017, 15:19. INDICATIONS : Chest pain for three day. IV CONTRAST: 68 cc Omnipaque 350 (iohexol) IV RADIATION DOSE: 10.46 CTDIvol (mGy) MEDICAL HISTORY : Cardiovascular disease. Lupus. SURGICAL HISTORY : Inguinal hernia repair. ENCOUNTER: Initial ACUITY: 1 day PAIN SCALE: 5/10 LOCATION: Bilateral chest TECHNIQUE: Volumetric scanning of the chest was performed using a pulmonary embolism protocol MIP images were re constructed. Using automated exposure control and adjustment of the mA and/or kV according to patien t size, radiation dose was kept as low as reasonably achievable to obtain optimal diagnostic quality images. DICOM format image data is available electronically for review and comparison. Follow-up recommendations for detected pulmonary nodules are based at a minimum on nodule size and pa tient risk factors according to Fleischner Society Guidelines. FINDINGS: PULMONARY ARTERIES: No filling defects are seen in the pulmonary arteries through the segmental level. LUNGS: There is no consolidation or pneumothorax . No concerning pulmonary nodule is visualized. PLEURAE: There is no pleural thickening or pleural effusion. MEDIASTINUM: There is good visualization of the great vessels of the middle mediastinum. No evidence of mediastin al or hilar adenopathy/mass. MUSCULOSKELETAL: Within normal limits for patient age. MISCELLANEOUS: The visualized upper abdominal organs demonstrate no acute abnormality. CONCLUSION: Normal examination. No evidence of pulmonary embolism. No evidence of acute cardiopulmonary process. Franc Blackman MD on May 14, 2017 at 17:45 Board Certified Radiologist. This report was verified electronically.
[2017-05-14] MEDS ORDERED: SODIUM CHLORIDE 0.9% FLUSH 10 ML FLUSH IV FLUSH PRN (18:15)
--- NOTE | 2017-05-14 18:53 | PD ---
Data Data Last Documented VS Vital Signs Date Time Temp Pulse Resp B/P (MAP) Pulse Ox O2 Delivery O2 Flow Rate FiO2 05/14/17 15:11 102 20 134/87 (103) 96 Room Air 05/14/17 14:08 99.4 Orders Orders Electrocardiogram (05/14/17 14:13) Basic Metabolic Panel (Bmp) (05/14/17 14:13) Ckmb (Isoenzyme) Profile (05/14/17 14:13) Complete Blood Count With Diff (05/14/17 14:13) Magnesium (Mg) (05/14/17 14:13) Prothrombin Time / Inr (Pt) (05/14/17 14:13) Act Partial Throm Time (Ptt) (05/14/17 14:13) Troponin I (05/14/17 14:13) Chest, Single Ap (05/14/17 14:13) Ecg Monitoring (05/14/17 14:13) Iv Access Insert/Monitor (05/14/17 14:13) Oximetry (05/14/17 14:13) Oxygen Administration (05/14/17 14:13) Sodium Chloride 0.9% Flush (Ns Flush) (05/14/17 14:15) Ct Pulmonary Angiogram (05/14/17 ) Ed Urine Pregnancytest Poc (05/14/17 16:47) Morphine Inj (Morphine Inj) (05/14/17 17:00) Iohexol 350 Inj (Omnipaque 350 Inj) (05/14/17 17:37) Place In Observation (05/14/17 18:01) Activity Bed Rest With Brp (05/14/17 18:01) Vital Signs (Adult) Q4H (05/14/17 18:01) Cardiac Rhythm .As Directed (05/14/17 18:01) Notify Dr: Other .PRN (05/14/17 18:01) Notify . Parameters (05/14/17 18:01) Resp Oxygen Nasal Cannula (05/14/17 ) Diet Heart Healthy (05/14/17 Dinner) Ckmb (Isoenzyme) Profile (05/14/17 18:01) Ckmb (Isoenzyme) Profile (05/14/17 21:01) Troponin I (05/14/17 18:01) Troponin I (05/14/17 21:01) Electrocardiogram (05/14/17 18:01) Electrocardiogram (05/14/17 21:01) ^ Obtain (05/14/17 18:01) Sodium Chloride 0.9% Flush (Ns Flush) (05/14/17 18:15) Sodium Chloride 0.9% Flush (Ns Flush) (05/14/17 21:00) [employer] Shingler / Telemetry FABBY.Q8H (05/14/17 18:01) Admit Order (Ed Use Only) (05/14/17 18:01) Labs Laboratory Tests Test 05/14/17 14:50 White Blood Count 6.6 TH/MM3 Red Blood Count 4.65 MIL/MM3 Hemoglobin 13.5 GM/DL Hematocrit 41.0 % Mean Corpuscular Volume 88.2 FL Mean Corpuscular Hemoglobin 29.0 PG Mean Corpuscular Hemoglobin Concent 32.9 % Red Cell Distribution Width 14.2 % Platelet Count 406 TH/MM3 Mean Platelet Volume 7.3 FL Neutrophils (%) (Auto) 67.7 % Lymphocytes (%) (Auto) 21.9 % Monocytes (%) (Auto) 6.6 % Eosinophils (%) (Auto) 2.7 % Basophils (%) (Auto) 1.1 % Neutrophils # (Auto) 4.5 TH/MM3 Lymphocytes # (Auto) 1.4 TH/MM3 Monocytes # (Auto) 0.4 TH/MM3 Eosinophils # (Auto) 0.2 TH/MM3 Basophils # (Auto) 0.1 TH/MM3 CBC Comment DIFF FINAL Differential Comment Prothrombin Time 12.0 SEC Prothromb Time International Ratio 1.1 RATIO Activated Partial Thromboplast Time 26.5 SEC Blood Urea Nitrogen 9 MG/DL Creatinine 1.09 MG/DL Random Glucose 99 MG/DL Calcium Level 9.7 MG/DL Magnesium Level 2.2 MG/DL Sodium Level 137 MEQ/L Potassium Level 4.0 MEQ/L Chloride Level 103 MEQ/L Carbon Dioxide Level 26.4 MEQ/L Anion Gap 8 MEQ/L Estimat Glomerular Filtration Rate 58 ML/MIN Total Creatine Kinase 64 U/L Troponin I LESS THAN 0.02 NG/ML MDM Supervised Visit with [facility]: Yes Narrative Course The history, exam, and medical decision-making in the associated midlevel provider note were completed with my assistance. I reviewed and agree with the findings presented. I attest that I had a [id number] encounter with the patient on the same day, and personally performed and documented my assessment and findings in the medical record. *My assessment and Findings: This is a 32-year-old female who presents to the emergency department with chest discomfort. She has a history of lupus. She has a benign physical exam and EKG is unremarkable. Labs are obtained which are reassuring. CT pulmonary angiogram was obtained given her lupus history. I think patient requires observation and chest pain center. Debbie Pichardo MD May 14, 2017 18:53
[2017-05-14 19:34] LABS: CREATINE KINASE 55 U/L (26-192)
[2017-05-14] MEDS: SODIUM CHLORIDE 0.9% FLUSH 10 ML FLUSH IV FLUSH SCH (21:00)
[2017-05-14 22:23] LABS: CREATINE KINASE 60 U/L (26-192)
[2017-05-14] MEDS ORDERED: QUEtiapine FUMARATE 100 MG TAB PO SCH (22:45)
[2017-05-14] MEDS ORDERED: ONDANSETRON ODT 4 MG TAB PO PRN (22:45)
[2017-05-14] MEDS ORDERED: AMITRIPTYLINE HCL 100 MG TAB PO SCH (22:45)
[2017-05-14] MEDS: MORPHINE SULFATE 4 MG/ML INJ IV PUSH PRN (23:14)
[2017-05-15 03:43] VITALS: BP 121/78; PULSE 89; RESP 16; TEMP 98.3; O2SAT 96
[2017-05-15] MEDS ORDERED: LEVOTHYROXINE SODIUM 50 MCG TAB PO SCH (06:00)
[2017-05-15] MEDS: MORPHINE SULFATE 4 MG/ML INJ IV PUSH PRN ×2 (06:56→11:05)
[2017-05-15 07:26] VITALS: O2SAT 97
[2017-05-15] MEDS ORDERED: NITROGLYCERIN 0.4 MG SL 25 TABS/BTL SL PRN (07:45)
[2017-05-15] MEDS ORDERED: ACETAMINOPHEN 500 MG CPLT PO PRN (07:45)
[2017-05-15] MEDS: SODIUM CHLORIDE 0.9% FLUSH 10 ML FLUSH IV FLUSH SCH (08:24)
[2017-05-15] MEDS: busPIRone HCL 10 MG TAB PO SCH ×2 (08:25→12:46)
[2017-05-15 08:28] VITALS: BP 115/80; PULSE 88; RESP 18; TEMP 96.6; O2SAT 96
[2017-05-15] MEDS ORDERED: ASPIRIN 325 MG TAB PO SCH (09:00)
[2017-05-15] MEDS ORDERED: SERTRALINE HCL 100 MG TAB PO SCH (09:00)
[2017-05-15 09:13] VITALS: PULSE 89
--- NOTE | 2017-05-15 09:46 | HHI.HP ---
[facility] Primary Care Physician Dr. Rene Larkin Chief Complaint Chest pain History of Present Illness 32-year-old female with history of lupus, PTSD, and fibromyalgia presents to emergency room for further evaluation of chest pain. Onset a few months stating the last few days chest discomfort has been worse. Location generalized chest with radiation to left scapula area. Characterized as a flutter, "bubble feeling," and tenderness. Duration varies from minutes to hours, every day over the last few months.. Associated symptoms none. Denies nausea, vomiting, diaphoresis, or dyspnea. No known precipitating or relieving factors. Endorses she went to her primary care office yesterday regarding above and was directed to come to the emergency room for further evaluation of chest pain. Review of Systems General: No fatigue,weakness, fever, chills, or recent illness. Reports a recent "flare-up of her sciatica." Seen and evaluated in urgent care 4 days ago , was given a muscle relaxant and sciatica improving. HEENT: No HENRY, no nasal congestion or drainage CV: As stated above. Denies any current chest pain or pressure now. No palpitations or dizziness. RESP: No SOB, cough, wheeze, recent URI, sputum production, or history of asthma. GI: No nausea, vomiting, bowel changes, diarrhea, constipation, pain, or distention. History of rectal bleeding. Reports daily rectal bleeding for the last year and a half, maroon color stool. States having an endoscopy completed 1-1/2 year ago with findings of 3 small ulcers and one large ulcer. Colonoscopy completed at that time reports found benign polyps. Follows with Dr. Garcia, GI. No unintentional weight gain, weight loss, or change in appetite. : Currently being treated for a UTI. Antibiotic given when seen at urgent care for her sciatic nerve pain, she was told she has a urinary tract infection. No dysuria, urgency, or frequency. She does not remember name of antibiotic. Reports taking antibiotic as directed. 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 Denies chance of . Does not use control. States age 20 she was told she could not get due to PCOS. EXT: No lower leg edema, no paraesthesias MS: Recently treated with a muscle relaxant for her sciatic nerve tenths 4 days ago. Seen and an urgent care clinic. NEURO: No change in memory, difficulty with balance, LOC, motor/sensory deficits PSYCH: History of anxiety, depression, and PTSD. Anxiety and depression reported to be well controlled on current medication regimen. Follows with a psychiatrist. No suicidal ideation. Past Family Social History Allergies: Coded Allergies: No Known Allergies (Unverified , 03/10/17) Past Medical History Lupus, fibromyalgia, anxiety, depression, PTSD, hypothyroidism, psoriasis, sciatic nerve pain Past Surgical History Inguinal hernia repair Reported Medications Active Ondansetron (Ondansetron HCl) 4 Mg Tab 1 Tab PO Q8HR PRN Levothyroxine (Levothyroxine Sodium) 50 Mcg Tab 50 Mcg PO DAILY Buspirone (Buspirone HCl) 30 Mg Tab 30 Mg PO TID Sertraline (Sertraline HCl) 100 Mg Tab 100 Mg PO DAILY Amitriptyline (Amitriptyline HCl) 100 Mg Tab 100 Mg PO HS Quetiapine (Quetiapine Fumarate) 100 Mg Tab 100 Mg PO HS Mapap Extra Strength (Acetaminophen) 500 Mg Tab 1,000 Mg PO Q4-6H PRN Muscle relaxant-name unknown Antibiotic-name unknown Active Ordered Medications Current Medications Medications (Trade) Dose Ordered Sig/Des Route Start Time Stop Time Status Last Admin (NS Flush) 2 ml UNSCH PRN IV FLUSH 05/14/17 18:15 (NS Flush) 2 ml BID IV FLUSH 05/14/17 21:00 05/15/17 08:24 (Morphine Inj) 2 mg Q4H PRN IV PUSH 05/14/17 22:45 05/15/17 06:56 (Elavil) 100 mg HS PO 05/14/17 22:45 05/14/17 23:36 (Synthroid) 50 mcg DAILY@0600 PO 05/15/17 06:00 05/15/17 05:20 (Zofran Odt) 4 mg Q8H PRN PO 05/14/17 22:45 (SEROquel) 100 mg HS PO 05/14/17 22:45 05/14/17 23:29 (Zoloft) 100 mg DAILY PO 05/15/17 09:00 (Buspar) 30 mg TID PO 05/15/17 09:00 05/15/17 08:25 (Tylenol) 500 mg Q4H PRN PO 05/15/17 07:45 (Nitrostat Sl) 0.4 mg Q5M PRN SL 05/15/17 07:45 (Aspirin) 325 mg DAILY PO 05/15/17 09:00 05/15/17 08:26 Family History Noncontributory for early onset cardiovascular disease Social History No known diabetes, hypertension, or hyperlipidemia. Lifelong nonsmoker. While living in [place] she used medical marijuana 2 years. No marijuana at this time. Drinks alcohol 2-3 times monthly. Disabled. Lives with her boyfriend. Reports feeling safe with her boyfriend and lives in a safe environment. Past cardiac testing None Physical Exam Vital Signs Vital Signs Date Time Temp Pulse Resp B/P (MAP) Pulse Ox O2 Delivery O2 Flow Rate FiO2 05/15/17 09:13 89 05/15/17 08:28 96.6 88 18 115/80 (92) 96 05/15/17 08:23 22 05/15/17 07:26 97 21 05/15/17 03:43 98.3 89 16 121/78 (92) 96 05/14/17 23:51 95 05/14/17 23:32 98.3 92 18 132/93 (106) 96 05/14/17 20:06 18 05/14/17 20:05 18 05/14/17 20:00 98.1 96 18 137/93 (108) 97 05/14/17 19:34 05/14/17 18:31 92 20 131/90 (104) 97 Room Air 05/14/17 15:11 102 20 134/87 (103) 96 Room Air 05/14/17 15:04 18 98 Room Air 05/14/17 15:04 105 21 98 Room Air 05/14/17 15:04 98 Room Air 05/14/17 14:08 99.4 120 19 167/103 (124) 98 Room Air Physical Exam GENERAL: Alert WN, WD, NAD, anxious, female HEAD: NC, AT EYES: Sclera clear, conjunctiva without injection, pupils equal and round ENT: Mucous membranes pink and moist NECK: Supple, no masses, trachea midline CV: RRR, without murmur, rub, gallop, no JVD, S1-S2 no S3-S4. No carotid bruits. Chest wall pain reproducible with palpation. RESP: Clear lungs throughout bilateral, no crackles, wheeze, rhonchi, symmetrical chest rise, nonlabored, able to speak in full sentences ABD: Soft, NT, ND, no masses, positive bowel tones EXT: Pulses +24, no dependent edema MS: Normal tone 4 extremities, nontender, no obvious deformities, full range of motion NEURO: CN II through CN XII grossly intact, motor strength 5/5, PSYCH: A+O 3, flat affect, anxious, appropriate speech, appropriate mood and affect, insight and judgment SKIN: Normal turgor, normal texture, no lesions, no rashes, brisk cap refill, even hair distribution Laboratory Laboratory Tests Test 05/14/17 14:50 05/14/17 18:34 05/14/17 21:15 White Blood Count 6.6 Red Blood Count 4.65 Hemoglobin 13.5 Hematocrit 41.0 Mean Corpuscular Volume 88.2 Mean Corpuscular Hemoglobin 29.0 Mean Corpuscular Hemoglobin Concent 32.9 Red Cell Distribution Width 14.2 Platelet Count 406 Mean Platelet Volume 7.3 Neutrophils (%) (Auto) 67.7 Lymphocytes (%) (Auto) 21.9 Monocytes (%) (Auto) 6.6 Eosinophils (%) (Auto) 2.7 Basophils (%) (Auto) 1.1 Neutrophils # (Auto) 4.5 Lymphocytes # (Auto) 1.4 Monocytes # (Auto) 0.4 Eosinophils # (Auto) 0.2 Basophils # (Auto) 0.1 CBC Comment DIFF FINAL Differential Comment Prothrombin Time 12.0 Prothromb Time International Ratio 1.1 Activated Partial Thromboplast Time 26.5 Blood Urea Nitrogen 9 Creatinine 1.09 Random Glucose 99 Calcium Level 9.7 Magnesium Level 2.2 Sodium Level 137 Potassium Level 4.0 Chloride Level 103 Carbon Dioxide Level 26.4 Anion Gap 8 Estimat Glomerular Filtration Rate 58 Total Creatine Kinase 64 55 60 Troponin I LESS THAN 0.02 LESS THAN 0.02 LESS THAN 0.02 Result Diagram: 05/14/17 1450 05/14/17 1450 Imaging Last Impressions Chest X-Ray 05/14/17 1413 Signed Impressions: Service Date/Time: Sunday, May 14, 2017 15:19 - CONCLUSION: 1. No acute cardiopulmonary findings. Nico Strange MD CT Angiography 05/14/17 0000 Signed Impressions: Service Date/Time: Sunday, May 14, 2017 17:27 - CONCLUSION: Normal examination. No evidence of pulmonary embolism. No evidence of acute cardiopulmonary process. Franc Blackman MD Course EKG Normal sinus rhythm, normal axis, nonspecific T-wave change Caprini VTE Risk Assessment Caprini VTE Risk Assessment: No/Low Risk (score <= 1) Caprini Risk Assessment Model Point Value = 1 Point Value = 2 Point Value = 3 Point Value = 5 Age 41-60 Minor surgery BMI > 25 kg/m2 Swollen legs Varicose veins or History of unexplained or recurrent spontaneous Oral contraceptives or hormone replacement Sepsis (< 1 month) Serious lung disease, including pneumonia (< 1 month) Abnormal pulmonary function Acute myocardial infarction Congestive heart failure (< 1 month) History of inflammatory bowel disease Medical patient at bed rest Age 61-74 Arthroscopic surgery Major open surgery (> 45 min) Laparoscopic surgery (> 45 min) Malignancy Confined to bed (> 72 hours) Immobilizing plaster cast Central venous access Age >= 75 History of VTE Family history of VTE Factor V Leiden Prothrombin [id number] Lupus anticoagulant Anticardiolipin antibodies Elevated serum homocysteine Heparin-induced thrombocytopenia Other congenital or acquired thrombophilia Stroke (< 1 month) Elective arthroplasty Hip, pelvis, or leg fracture Acute spinal cord injury (< 1 month) Prophylaxis Regimen Total Risk Factor Score Risk Level Prophylaxis Regimen 0-1 Low Early ambulation 2 Moderate Order ONE of the following: *Sequential Compression Device (SCD) *Heparin 5000 units SQ BID 3-4 Higher Order ONE of the following medications: *Heparin 5000 units SQ TID *Enoxaparin/Lovenox 40 mg SQ daily (WT < 150 kg, CrCl > 30 mL/min) *Enoxaparin/Lovenox 30 mg SQ daily (WT < 150 kg, CrCl > 10-29 mL/min) *Enoxaparin/Lovenox 30 mg SQ BID (WT < 150 kg, CrCl > 30 mL/min) AND/OR *Sequential Compression Device (SCD) 5 or more Highest Order ONE of the following medications: *Heparin 5000 units SQ TID (Preferred with Epidurals) *Enoxaparin/Lovenox 40 mg SQ daily (WT < 150 kg, CrCl > 30 mL/min) *Enoxaparin/Lovenox 30 mg SQ daily (WT < 150 kg, CrCl > 10-29 mL/min) *Enoxaparin/Lovenox 30 mg SQ BID (WT < 150 kg, CrCl > 30 mL/min) AND *Sequential Compression Device (SCD) Assessment and Plan Assessment and Plan #1 Atypical chest pain-admitted to chest pain center. Ruled out with 3 sets of EKGs, cardiac enzymes, monitor overnight. Seen and evaluated by Dr. Kyle Moore. Reassurance provided. Chest discomfort related to combined musculoskeletal pain and anxiety. No further cardiac testing at this time. Patient agreeable for discharge later this morning and is happy not to require any further testing. Encouraged use of heating pad to affected area. May use [id number] Aleve or Motrin as needed for pain. Follow-up with PCP if pain persists. #2 Rectal bleeding-hemoglobin and hematocrit and vital signs stable. Reports rectal bleeding daily for 1.5 years. Encouraged her to follow-up with her GI specialist, Dr. Glez. No acute issues at this time. Patient states she will keep her scheduled appointment with Dr. Glez next week. #3 UTI-instructed to continue and complete antibiotics as previously instructed. Continue home medications for anxiety and depression. Maryana Wolf May 15, 2017 09:46
[2017-05-15] MEDS ORDERED: IBUPROFEN 600 MG TAB PO ONE (10:00)
--- NOTE | 2017-05-15 11:57 | HHI.DCPOC ---
Discharge Care Plan Diagnosis: (1) Musculoskeletal chest pain (2) Situational stress Goals to Promote Your Health * To prevent worsening of your condition and complications * To maintain your health at the optimal level Directions to Meet Your Goals Take your medications as prescribed Follow your dietary instruction Follow activity as directed Keep your appointments as scheduled Take your immunizations and boosters as scheduled If your symptoms worsen call your PCP, if no PCP go to Urgent Care Center or Emergency Room Smoking is Dangerous to Your Health. Avoid second hand smoke Call the 24-hour hour crisis hotline for domestic abuse at Maryana Wolf May 15, 2017 11:57
[2017-05-15 12:48] VITALS: RESP 22
--- NOTE | 2017-05-15 16:34 | EKG ---
Date Performed: 05/14/2017 Time Performed: 14:36:38 PTAGE: 32 years EKG: SINUS TACHYCARDIA POSSIBLE LEFT ATRIAL ENLARGEMENT INCOMPLETE RIGHT BUNDLE BRANCH BLOCK NON SPECIFIC T-WAVE ABNORMALITY Compared to prior tracing no significant change ABNORMAL RHYTHM ECG PREVIOUS TRACING : 10/19/2016 14.35 DOCTOR: Kyle Moore Interpretating Date/Time 05/15/2017 16:34:29
--- NOTE | 2017-05-15 16:37 | EKG ---
Date Performed: 05/14/2017 Time Performed: 18:47:45 PTAGE: 32 years EKG: Sinus rhythm POSSIBLE LEFT ATRIAL ENLARGEMENT INCOMPLETE RIGHT BUNDLE BRANCH BLOCK NONSPECIFIC T-WAVE ABNORMALITY Compared to prior tracing no significant change BORDERLINE ECG PREVIOUS TRACING : 05/14/17 @ 14.36.38 DOCTOR: Kyle Moore Interpretating Date/Time 05/15/2017 16:35:14
--- NOTE | 2017-05-15 16:37 | EKG ---
Date Performed: 05/14/2017 Time Performed: 21:35:04 PTAGE: 32 years EKG: Sinus rhythm POSSIBLE LEFT ATRIAL ENLARGEMENT INCOMPLETE RIGHT BUNDLE BRANCH BLOCK NONSPECIFIC T-WAVE ABNORMALITY Compared to prior tracing no significant change BORDERLINE ECG PREVIOUS TRACING : 05/14/2017 18.47 DOCTOR: Kyle Moore Interpretating Date/Time 05/15/2017 16:35:23
== END 2017-05-15 13:11 | disposition home or self-care (01) ==
LOC: NEPC 14:05 → NEDA 18:06 → NEPGCP 19:33
PROVIDERS: ADMIT Internal Medicine Cardiovascular Disease; ATTEND Internal Medicine Cardiovascular Disease
DX: R07.89 Other chest pain (principal); K62.5 Hemorrhage of anus and rectum; N39.0 Urinary tract infection, site not specified; R06.02 Shortness of breath; R00.2 Palpitations; R94.31 Abnormal electrocardiogram [ECG] [EKG]; M32.9 Systemic lupus erythematosus, unspecified; M79.7 Fibromyalgia; I48.92 Unspecified atrial flutter; F41.8 Other specified anxiety disorders
CPT/HCPCS: 71010; 71275; 80048; 82550; 83735; 84484; 84703; 85025; 85610; 85730; 93005; 96374; 96376; 99285; G0378; J2270; Q9967